=== PATIENT | male | born 1950 ===

== ENCOUNTER 2018-05-17 13:34 | Inpatient (IN) | payer OTHER ==
[~2018-05-17] VITALS: Ht 180.3 cm; Wt 240.0 kg
== END 2018-05-20 07:20 | disposition expired | DRG 871 ==
LOC: ER 13:34 → SEC-K 05-18 14:39 → ICU 05-18 14:39
PROC: 5A1945Z Respiratory Ventilation, 24-96 Consecutive Hours (ICD-10-PCS; principal; 2018-05-19)
PROC: 0BH17EZ Insertion of Endotracheal Airway into Trachea, Via Natural or Artificial Opening (ICD-10-PCS; 2018-05-19)
PROC: 4A033R1 Measurement of Arterial Saturation, Peripheral, Percutaneous Approach (ICD-10-PCS; 2018-05-19)
PROC: 06HM33Z Insertion of Infusion Device into Right Femoral Vein, Percutaneous Approach (ICD-10-PCS; 2018-05-19)
PROC: B246ZZZ Ultrasonography of Right and Left Heart (ICD-10-PCS; 2018-05-19)
DX: A41.9 Sepsis, unspecified organism (principal); J96.01 Acute respiratory failure with hypoxia; R65.21 Severe sepsis with septic shock; K65.4 Sclerosing mesenteritis; R18.8 Other ascites; E87.2 Acidosis; N17.8 Other acute kidney failure; K92.2 Gastrointestinal hemorrhage, unspecified; K52.89 Other specified noninfective gastroenteritis and colitis; K31.89 Other diseases of stomach and duodenum; E86.0 Dehydration; E66.8 Other obesity; I46.8 Cardiac arrest due to other underlying condition; E87.5 Hyperkalemia; B96.1 Klebsiella pneumoniae [K. pneumoniae] as the cause of diseases classified elsewhere; Z78.1 Physical restraint status